=== PATIENT | male | born 1990 ===

== ENCOUNTER 2023-08-11 20:04 | Emergency (ER) | payer OTHER, SELFPAY ==
--- NOTE | 2023-08-11 20:00 | DI.RAD_ITS ---
Exam(s) XR HAND RT COMPLETE EXAM: XR HAND RT COMPLETE CLINICAL HISTORY: trauma. TECHNIQUE: 2D digital imaging was performed of the right hand. Three images were obtained. AP, late ral and oblique views were obtained. COMPARISON: No exams were available for comparison FINDINGS: BONES: No acute fracture is present. No bony destructive lesion is seen. JOINTS: No dislocation present. SOFT TISSUE: Normal. IMPRESSION: Unremarkable radiographs of the right hand. DATA REPOSITORY: RADIATION DOSE DELIVERED:
[2023-08-11 20:07] VITALS: BP 118/71; PULSE 79; RESP 20; TEMP 36.8; O2SAT 99
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
--- NOTE | 2023-08-11 21:01 | DI.VRAD_ITS ---
PROCEDURE INFORMATION: Exam: XR Right Hand Exam date and time: 08/11/2023 8:27 PM Age: 32 years old Clinical indication: Injury or trauma; Blunt trauma (contusions or hematomas); Hand; Right; Injury date: Today TECHNIQUE: Imaging protocol: Radiologic exam of the right hand. Views: 3 or more views. COMPARISON: No relevant prior studies available. FINDINGS: Bones/joints: Normal. Soft tissues: Normal. IMPRESSION: 1. No acute findings. 2. No acute fracture or dislocation. 3. No soft tissue gas or foreign body. Dictated and Authenticated by: Vickey Perez MD. Ordering:MACIEL Samuel MD
== END 2023-08-11 20:58 | disposition home or self-care (01) ==
PROVIDERS: Emergency Provider Nurse Practitioner Acute Care
DX: M79.641 Pain in right hand (principal); S60.221A Contusion of right hand, initial encounter; Y04.2XXA Assault by strike against or bumped into by another person, initial encounter
CPT/HCPCS: 36415; 99284; 73130; 99283